=== PATIENT | female | born 1985 | race American Indian/Alaskan Native ===

== ENCOUNTER 2018-01-24 01:43 | Emergency (ER) | payer MEDICAID ==
--- NOTE | 2018-01-24 03:09 | Emergency Department Report ---
ED General Adult HPI - General Chief complaint: Upper Respiratory Infection Stated complaint: COUGHING BLOOD Time Seen by Provider: 01/24/18 01:50 Source: patient, EMS Mode of arrival: Stretcher Limitations: No Limitations - History of Present Illness MD Complaint: couging up blood and chest pain Onset/Timin (days) -: Gradual Location: chest Radiation: non-radiation Severity scale (0 -10): 5 Quality: crushing Consistency: constant Improves with: none Worsens with: none Associated Symptoms: chest pain, cough Treatments Prior to Arrival: none - Related Data Home Medications Medication Instructions Recorded Confirmed Last Taken Lispro Insulin [Humalog] 5 unit SQ TID 07/27/17 12/08/17 1 Day Ago ~11/16/17 Suvorexant [Belsomra] 20 mg PO QHS 12/08/17 12/08/17 Unknown Previous Rx's Medication Instructions Recorded Last Taken Type Albuterol Sulfate [Albuterol 0.63% 0.63 mg IH TID PRN #30 vial.neb 08/01/17 1 Day Ago Rx NEBS] ~11/16/17 Insulin Glargine,Hum.rec.anlog 10 units SQ QHS #30 vial 08/01/17 1 Day Ago Rx [Lantus] ~11/16/17 Lisinopril 20 mg PO DAILY #30 tablet 08/01/17 1 Day Ago Rx ~11/16/17 Lurasidone HCl [Latuda] 120 mg PO QDAY #30 tablet 08/01/17 1 Day Ago Rx ~11/16/17 Rivaroxaban [Xarelto] 20 mg PO QHS #30 tablet 08/01/17 1 Day Ago Rx ~11/16/17 Duloxetine HCl [Cymbalta] 30 mg PO DAILY 30 Days capsule. 08/15/17 1 Day Ago Rx ~11/16/17 ALPRAZolam [Xanax TAB] 1 mg PO BID #14 tablet 12/12/17 Unknown Rx Ipratropium (Nf) [Atrovent HFA 2 puff IH Q6HR PRN #30 inha 12/12/17 Unknown Rx 17MCG/PUFF] Metoprolol [Lopressor TAB] 12.5 mg PO BID #60 tablet 12/12/17 Unknown Rx Prednisone [predniSONE 5 mg (6-Day 5 mg PO .TAPER #1 tab.ds.pk 12/12/17 Unknown Rx Pack, 21 Tabs)] levETIRAcetam [Keppra] 500 mg PO BID #60 tablet 12/12/17 Unknown Rx oxyCODONE /ACETAMINOPHEN [Percocet 1 tab PO Q8H PRN #14 tablet 12/12/17 Unknown Rx 5/325 mg] Allergies Allergy/AdvReac Type Severity Reaction Status Date / Time aspirin Allergy Hives Verified 08/13/17 17:52 ketorolac [From Toradol] Allergy Hives Verified 08/13/17 17:52 tramadol Allergy Hives Verified 11/16/17 21:03 ED Review of Systems ROS: Stated complaint: COUGHING BLOOD Other details as noted in HPI Comment: All other systems reviewed and negative ED Past Medical Hx - Past Medical History Hx Hypertension: Yes Hx CVA: Yes (September 2016 affecting the left side) Hx Heart Attack/AMI: Yes (08/27/16) Hx Congestive Heart Failure: Yes Hx Diabetes: Yes Hx Pulmonary Embolism: Yes Hx Seizures: Yes Hx Kidney Stones: Yes Hx Asthma: Yes Hx COPD: Yes Hx HIV: No Additional medical history: 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, Pericarditis - Surgical History Additional Surgical History: Partial hysterectomy, Tubaligation, Trach placed, Umbilical hernia repair, Left chest port - Social History Smoking Status: Never Smoker Substance Use Type: None - Medications Home Medications: Home Medications Medication Instructions Recorded Confirmed Last Taken Type Lispro Insulin [Humalog] 5 unit SQ TID 07/27/17 12/08/17 1 Day Ago History ~11/16/17 Albuterol Sulfate [Albuterol 0.63% 0.63 mg IH TID PRN #30 vial.neb 08/01/17 1 Day Ago Rx NEBS] ~11/16/17 Insulin Glargine,Hum.rec.anlog 10 units SQ QHS #30 vial 08/01/17 12/08/17 1 Day Ago Rx [Lantus] ~11/16/17 Lisinopril 20 mg PO DAILY #30 tablet 08/01/17 12/08/17 1 Day Ago Rx ~11/16/17 Lurasidone HCl [Latuda] 120 mg PO QDAY #30 tablet 08/01/17 12/08/17 1 Day Ago Rx ~11/16/17 Rivaroxaban [Xarelto] 20 mg PO QHS #30 tablet 08/01/17 12/08/17 1 Day Ago Rx ~11/16/17 Duloxetine HCl [Cymbalta] 30 mg PO DAILY 30 Days capsule. 08/15/17 12/08/17 1 Day Ago Rx ~11/16/17 Suvorexant [Belsomra] 20 mg PO QHS 12/08/17 12/08/17 Unknown History ALPRAZolam [Xanax TAB] 1 mg PO BID #14 tablet 12/12/17 Unknown Rx Ipratropium (Nf) [Atrovent HFA 2 puff IH Q6HR PRN #30 inha 12/12/17 Unknown Rx 17MCG/PUFF] Metoprolol [Lopressor TAB] 12.5 mg PO BID #60 tablet 12/12/17 Unknown Rx Prednisone [predniSONE 5 mg (6-Day 5 mg PO .TAPER #1 tab.ds.pk 12/12/17 Unknown Rx Pack, 21 Tabs)] levETIRAcetam [Keppra] 500 mg PO BID #60 tablet 12/12/17 Unknown Rx oxyCODONE /ACETAMINOPHEN [Percocet 1 tab PO Q8H PRN #14 tablet 12/12/17 Unknown Rx 5/325 mg] ED Physical Exam - General Limitations: No Limitations General appearance: alert, in no apparent distress - Head Head exam: Present: atraumatic, normocephalic - Eye Eye exam: Present: normal appearance - ENT ENT exam: Present: mucous membranes moist, other (tracheostomy in place) - Neck Neck exam: Present: normal inspection - Respiratory Respiratory exam: Present: normal lung sounds bilaterally. Absent: respiratory distress - Cardiovascular Cardiovascular Exam: Present: regular rate, normal rhythm. Absent: systolic murmur, diastolic murmur, rubs, gallop - GI/Abdominal GI/Abdominal exam: Present: soft, normal bowel sounds. Absent: tenderness - Rectal Rectal exam: Present: deferred - Extremities Exam Extremities exam: Present: normal inspection - Back Exam Back exam: Present: normal inspection - Neurological Exam Neurological exam: Present: alert, oriented X3 - Psychiatric Psychiatric exam: Present: normal affect, normal mood - Skin Skin exam: Present: warm, dry, intact, normal color. Absent: rash ED Course Vital Signs 01/24/18 01/24/18 02:00 04:25 Temperature 99.2 F Pulse Rate 85 Respiratory 18 16 Rate Blood Pressure 112/68 Blood Pressure 112/68 [Right] O2 Sat by Pulse 100 Oximetry ED Medical Decision Making - Lab Data Result diagrams: 01/24/18 03:35 01/24/18 03:35 - Radiology Data Radiology results: report reviewed - Medical Decision Making i feel the patient hemoptysis is due to take fact the her trachea was try and i advised her to use her oxygen over humidifier Critical care attestation.: If time is entered above; I have spent that time in minutes in the direct care of this critically ill patient, excluding procedure time. ED Disposition Clinical Impression: Hemoptysis Disposition: DC-01 TO HOME OR SELFCARE Is pt being admited?: No Does the pt Need Aspirin: No Condition: Stable Instructions: Acute Hemoptysis (ED) Additional Instructions: follow up with your PCP in 2 days for your low hemoglobin as he might want to order more testing Time of Disposition: 05:04 Print Language: [place]
[2018-01-24] MEDS ORDERED: TYLENOL PO ONE (03:13)
[2018-01-24 03:46] LABS: Basophils % (Auto) 0.3 % (0.0-1.8); Eosinophils # (Auto) 0.1 K/mm3 (0.0-0.4); Eosinophils % (Auto) 1.4 % (0.0-4.3); Lymphocytes # (Auto) 2.6 K/mm3 (1.2-5.4); Lymphocytes % (Auto) 31.1 % (13.4-35.0); Mean Corpuscular HGB Conc 31 % (30-34); Monocytes # (Auto) 0.7 K/mm3 (0.0-0.8); Monocytes % (Auto) 8.4 % (0.0-7.3); Platelet Count 236 K/mm3 (140-440); Red Blood Count 3.75 M/mm3 (3.65-5.03); Red Cell Distribution Width 18.5 % (13.2-15.2)
--- NOTE | 2018-01-24 03:47 | Cat Scan Report ---
FINAL REPORT EXAM: CT CHEST WO CON HISTORY: hemoptysis TECHNIQUE: Routine axial imaging was obtained of the thorax without IV contrast with sagittal and coronal reconstructions. Comparison is made to the study of 11/16/2017. FINDINGS: At this time the lungs show no evidence infiltrates or congestion. Pleural fluid is not identified. There is a small bleb in the right middle lobe. The heart size is normal. Pericardial fluid is not seen. There is no evidence of adenopathy. There is a right-sided Port-A-Cath catheter with the tip in the superior vena cava. The thoracic aorta is normal in caliber. The skeletal structures do not show any acute changes. IMPRESSION: No acute process in the chest.
[2018-01-24] MEDS ORDERED: NORCO 5/325 PO ONE (03:53)
[2018-01-24 03:59] LABS: Mean Corpuscular Hemoglobin 21 pg (28-32); Mean Corpuscular Volume 69 fl (79-97)
[2018-01-24 04:14] LABS: Alanine Aminotransferase 6 units/L (7-56); Albumin 3.6 g/dL (3.9-5); BUN/Creatinine Ratio 13; Blood Urea Nitrogen 8 mg/dL (7-17); Calcium 8.3 mg/dL (8.4-10.2); Hemolysis Index 1
[2018-01-24 05:48] VITALS: BP 101/53
== END 2018-01-24 06:23 | disposition home or self-care (01) ==
LOC: ED 01:43
DX: R04.2 Hemoptysis (principal); I11.0 Hypertensive heart disease with heart failure; I50.9 Heart failure, unspecified; E11.9 Type 2 diabetes mellitus without complications; J44.9 Chronic obstructive pulmonary disease, unspecified; I25.2 Old myocardial infarction; Z79.4 Long term (current) use of insulin; Z88.6 Allergy status to analgesic agent
CPT/HCPCS: 36415; 71250; 80053; 84484; 85025; 99284

== ENCOUNTER 2018-03-02 13:56 | Emergency (ER) | payer MEDICAID ==
--- NOTE | 2018-03-02 15:32 | XRay Report ---
Portable chest: Chest pain. There is a right-sided port entering the jugular vein with the tip in the mid SVC. The lungs are clear the mediastinal contour is unremarkable. The bones are normal. No interval change compared to prior exam of February 17, 2018. Impression: No acute finding and no pathology identified.
[2018-03-02] MEDS ORDERED: TYLENOL PO ONE (23:02)
[2018-03-02 23:06] LABS: Basophils % (Auto) 0.3 % (0.0-1.8); Eosinophils # (Auto) 0.1 K/mm3 (0.0-0.4); Eosinophils % (Auto) 1.2 % (0.0-4.3); Hematocrit 34.2 % (30.3-42.9); Hemoglobin 11.1 gm/dl (10.1-14.3); Lymphocytes # (Auto) 2.8 K/mm3 (1.2-5.4); Mean Corpuscular HGB Conc 33 % (30-34); Mean Corpuscular Volume 73 fl (79-97); Monocytes # (Auto) 0.4 K/mm3 (0.0-0.8); Monocytes % (Auto) 5.5 % (0.0-7.3); Platelet Count 193 K/mm3 (140-440); Red Blood Count 4.67 M/mm3 (3.65-5.03)
[2018-03-02 23:07] LABS: Mean Corpuscular Hemoglobin 24 pg (28-32); Red Cell Distribution Width 24.9 % (13.2-15.2)
[2018-03-02 23:15] LABS: INR 0.95 (0.87-1.13)
[2018-03-02 23:16] LABS: Partial Thromboplastin Time 33.5 Sec. (24.2-36.6)
[2018-03-02 23:18] LABS: BUN/Creatinine Ratio 15; Blood Urea Nitrogen 9 mg/dL (7-17); Calcium 9.2 mg/dL (8.4-10.2); Hemolysis Index 4
[2018-03-02] MEDS ORDERED: SUBLIMAZE ONE (23:29)
[2018-03-02] MEDS ORDERED: SUBLIMAZE IV ONE (23:30)
--- NOTE | 2018-03-03 00:51 | Emergency Department Report ---
HPI - General Chief Complaint: Chest Pain Time Seen by Provider: 03/02/18 21:35 - HPI HPI: The patient is 33-year-old female with a history of congestive heart failure and CAD, well known to this emergency department, and whom presents for evaluation recurrence of chest pain. The patient reports chest pain for the past day, constant, 10/10 in severity, sharp in quality, exacerbated with movement. She also complains of bilateral lower leg swelling. The patient denies trauma to the chest, dyspnea, cough, syncope, hemoptysis, unilateral leg swelling, oral contraceptive use, recent immobilization, hx of recent cancer. 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 O2 dependent. - Surgical History Past Surgical History?: Yes Additional Surgical History: Partial hysterectomy, Tubaligation, Trach placed, Umbilical hernia repair, Left chest port - Social History Smoking Status: Never Smoker Substance Use Type: None - Medications Home Medications: Home Medications Medication Instructions Recorded Confirmed Last Taken Type Lispro Insulin [Humalog] 5 unit SQ TID 07/27/17 02/18/18 1 Day Ago History ~11/16/17 Albuterol Sulfate [Albuterol 0.63% 0.63 mg IH TID PRN #30 vial.neb 08/01/1706/30 1 Day Ago Rx NEBS] ~11/16/17 Insulin Glargine,Hum.rec.anlog 10 units SQ QHS #30 vial 08/01/17 02/18/18 1 Day Ago Rx [Lantus] ~11/16/17 Lisinopril 20 mg PO DAILY #30 tablet 08/01/17 02/18/18 1 Day Ago Rx ~11/16/17 Lurasidone HCl [Latuda] 120 mg PO QDAY #30 tablet 08/01/17 02/18/18 1 Day Ago Rx ~11/16/17 Rivaroxaban [Xarelto] 20 mg PO QHS #30 tablet 08/01/17 02/18/18 1 Day Ago Rx ~11/16/17 Duloxetine HCl [Cymbalta] 30 mg PO DAILY 30 Days capsule. 08/15/17 02/18/18 1 Day Ago Rx ~11/16/17 Suvorexant [Belsomra] 20 mg PO QHS 12/08/17 02/18/18 Unknown History ALPRAZolam [Xanax TAB] 1 mg PO BID #14 tablet 12/12/17 02/18/18 Unknown Rx Ipratropium (Nf) [Atrovent HFA 2 puff IH Q6HR PRN #30 inha 12/12/17 02/18/18 Unknown Rx 17MCG/PUFF] Metoprolol [Lopressor TAB] 12.5 mg PO BID #60 tablet 12/12/17 02/18/18 Unknown Rx Prednisone [predniSONE 5 mg (6-Day 5 mg PO .TAPER #1 tab.ds.pk 12/12/17 Unknown Rx Pack, 21 Tabs)] levETIRAcetam [Keppra] 500 mg PO BID #60 tablet 12/12/17 02/18/18 Unknown Rx oxyCODONE /ACETAMINOPHEN [Percocet 1 tab PO Q8H PRN #12 tablet 02/20/18 Unknown Rx 5/325 mg] ED Review of Systems ROS: Stated complaint: CHEST PAIN Other details as noted in HPI Constitutional: denies: fever ENT: denies: throat or neck pain Respiratory: denies: cough, shortness of breath Cardiovascular: reports: chest pain Endocrine: denies unexplained weight loss or gain Gastrointestinal: denies: abdominal pain, nausea Genitourinary: denies: dysuria Musculoskeletal: denies: leg swelling Skin: denies: rash Neurological: denies: headache Hematological/Lymphatic: denies: easy bleeding or easy bruising Psych: denies sadness or hopelessness Physical Exam - Physical Exam Vital Signs: Vital Signs 03/02/18 03/02/18 03/02/18 14:18 14:25 14:29 Temperature 98.8 F Pulse Rate 78 107 H 79 Respiratory 18 Rate Blood Pressure 102/78 110/76 Blood Pressure [Left] O2 Sat by Pulse 100 96 100 Oximetry 03/02/18 03/02/1818 21:25 21:29 21:31 Temperature 98.7 F Pulse Rate 67 66 Respiratory 16 16 Rate Blood Pressure 117/69 99/63 Blood Pressure 117/69 [Left] O2 Sat by Pulse 99 Oximetry 03/02/18 03/02/18 03/02/18 21:45 22:00 22:21 Temperature Pulse Rate 72 74 Respiratory 17 11 L Rate Blood Pressure 99/63 117/78 117/78 Blood Pressure [Left] O2 Sat by Pulse Oximetry 03/02/18 03/02/18 03/02/18 22:25 22:30 22:45 Temperature Pulse Rate 73 87 Respiratory 16 13 43 H Rate Blood Pressure 109/69 109/69 Blood Pressure [Left] O2 Sat by Pulse 98 Oximetry 03/02/18 03/02/18 03/02/18 23:01 23:15 23:23 Temperature Pulse Rate 64 73 Respiratory 15 12 16 Rate Blood Pressure 109/69 109/69 Blood Pressure [Left] O2 Sat by Pulse Oximetry 03/02/18 03/02/18 03/02/18 23:31 23:35 23:45 Temperature Pulse Rate 72 68 Respiratory 13 16 18 Rate Blood Pressure 119/68 119/68 Blood Pressure [Left] O2 Sat by Pulse 100 Oximetry 03/03/18 00:04 Temperature Pulse Rate 77 Respiratory Rate Blood Pressure Blood Pressure [Left] O2 Sat by Pulse Oximetry Physical Exam: General: well-nourished, well-developed, no acute distress, patient morbidly obese Head: Normocephalic, atraumatic Eyes: normal sclera ENT: Mucous membranes are pink and moist Neck: trachea midline, neck supple, No neck stiffness, no cervical adenopathy Respiratory: Breath sounds equal bilaterally, no wheezing, rales, or rhonchi Cardio: S1 and S2 present, no murmurs, rubs, gallops, capillary refill is brisk Abdomen: Normoactive bowel sounds, soft abdomen, no rigidity, no guarding or rebound tenderness Chest WALL/Back: No tenderness to palpation of the chest wall, no CVA tenderness with percussion Musc: No pitting edema Skin: No rash Neuro: no facial drooping, normal speech Psych: Normal affect ED Course Vital Signs 03/02/18 03/02/18 03/02/18 14:18 14:25 14:29 Temperature 98.8 F Pulse Rate 78 107 H 79 Respiratory 18 Rate Blood Pressure 102/78 110/76 Blood Pressure [Left] O2 Sat by Pulse 100 96 100 Oximetry 03/02/18 03/02/18 03/02/18 21:25 21:29 21:31 Temperature 98.7 F Pulse Rate 67 66 Respiratory 16 16 Rate Blood Pressure 117/69 99/63 Blood Pressure 117/69 [Left] O2 Sat by Pulse 99 Oximetry 03/02/18 03/02/18 03/02/18 21:45 22:00 22:21 Temperature Pulse Rate 72 74 Respiratory 17 11 L Rate Blood Pressure 99/63 117/78 117/78 Blood Pressure [Left] O2 Sat by Pulse Oximetry 03/02/18 03/02/18 03/02/18 22:25 22:30 22:45 Temperature Pulse Rate 73 87 Respiratory 16 13 43 H Rate Blood Pressure 109/69 109/69 Blood Pressure [Left] O2 Sat by Pulse 98 Oximetry 03/02/18 03/02/18 03/02/18 23:01 23:15 23:23 Temperature Pulse Rate 64 73 Respiratory 15 12 16 Rate Blood Pressure 109/69 109/69 Blood Pressure [Left] O2 Sat by Pulse Oximetry 03/02/18 03/02/18 03/02/18 23:31 23:35 23:45 Temperature Pulse Rate 72 68 Respiratory 13 16 18 Rate Blood Pressure 119/68 119/68 Blood Pressure [Left] O2 Sat by Pulse 100 Oximetry 03/03/18 00:04 Temperature Pulse Rate 77 Respiratory Rate Blood Pressure Blood Pressure [Left] O2 Sat by Pulse Oximetry ED Medical Decision Making - Lab Data Result diagrams: 03/02/18 22:36 03/02/18 22:36 - Medical Decision Making The patient was seen and examined by myself. The patient is placed on a residential monitor and continuous pulse ox. On initial evaluation, the patient was found to be in no distress. EKG was negative for findings suggestive of acute cardiac infarct. Labs and imaging are obtained. The patient is given IV dose of fentanyl for pain. Chest x-ray is negative for pneumothorax, focal consolidation, pulmonary vascular congestion, pleural effusion, or other obvious acute cardiopulmonary disease process. Lab results were non-concerning including levels of troponin, WBC, hemoglobin, hematocrit, electrolytes, renal function. Medical records are reviewed and revealed that the patient received a cardiac stress test which was -30 days ago. Additionally MRIs of the C-spine, T-spine, L -spine were obtained and were all negative for spinal cord injury or cauda equina as well. The patient was informed of essentially unremarkable workup today. The patient reported that her pain persisted despite IV fentanyl. She was offered a tablet of Flexeril and she refuses. She requested narcotic pain medication. She was informed that as her workup is unremarkable, narcotic pain medicine is not warranted. She then began to report additional complaints including constant back pain and leg pain for more than one month. She was informed of unremarkable MRIs of the spine and right lower extremity 2 weeks ago. The patient is exhibiting narcotic seeking behavior. The patient is stable for discharge with outpatient follow-up. The patient is given follow-up and return instructions. The patient expressed understanding and agreed with the plan. The patient is discharged in stable condition. Critical care attestation.: If time is entered above; I have spent that time in minutes in the direct care of this critically ill patient, excluding procedure time. ED Disposition Clinical Impression: Acute chest pain Disposition: - TO HOME OR SELFCARE Is pt being admited?: No Does the pt Need Aspirin: No Condition: Stable Instructions: Chest Pain (ED) Referrals: PRIMARY CARE, [Primary Care Provider] - 3-5 Days Time of Disposition: 00:51
[2018-03-03] MEDS ORDERED: FLUSH HEPARIN IV ONE (01:33)
[2018-03-03 02:25] VITALS: BP 111/70
== END 2018-03-03 03:58 | disposition home or self-care (01) ==
LOC: ED 13:56
DX: R07.9 Chest pain, unspecified (principal); I25.2 Old myocardial infarction; I11.0 Hypertensive heart disease with heart failure; I50.9 Heart failure, unspecified; E11.9 Type 2 diabetes mellitus without complications; J44.9 Chronic obstructive pulmonary disease, unspecified; F32.9 Major depressive disorder, single episode, unspecified; Z86.711 Personal history of pulmonary embolism; Z98.51 Tubal ligation status; Z86.73 Personal history of transient ischemic attack (TIA), and cerebral infarction without residual deficits; Z87.442 Personal history of urinary calculi; Z88.6 Allergy status to analgesic agent
CPT/HCPCS: 36415; 71045; 80048; 82962; 84484; 84703; 85025; 85610; 85730; 93005; 93010; 96374; 96375; 99284; J1642; J3010

== ENCOUNTER 2018-06-02 22:33 | Emergency (ER) | payer MEDICAID ==
[2018-06-02] MEDS ORDERED: TORADOL IV ONE (22:52)
[2018-06-02] MEDS ORDERED: PEPCID IV ONE (22:52)
[2018-06-02] MEDS ORDERED: NACL 0.9% 1000 ML 1,000 ML IV ONE (22:52)
[2018-06-02] MEDS ORDERED: ZOFRAN IV ONE (22:52)
[2018-06-02] MEDS ORDERED: MORPHINE IV ONE (22:52)
[2018-06-02 23:29] LABS: Basophils % (Auto) 0.3 % (0.0-1.8); Eosinophils # (Auto) 0.1 K/mm3 (0.0-0.4); Eosinophils % (Auto) 1.5 % (0.0-4.3); Hematocrit 33.2 % (30.3-42.9); Hemoglobin 11.2 gm/dl (10.1-14.3); Lymphocytes # (Auto) 2.4 K/mm3 (1.2-5.4); Lymphocytes % (Auto) 33.5 % (13.4-35.0); Mean Corpuscular HGB Conc 34 % (30-34); Mean Corpuscular Hemoglobin 28 pg (28-32); Mean Corpuscular Volume 84 fl (79-97); Monocytes # (Auto) 0.5 K/mm3 (0.0-0.8); Monocytes % (Auto) 6.7 % (0.0-7.3); Platelet Count 195 K/mm3 (140-440); Red Blood Count 3.94 M/mm3 (3.65-5.03); Red Cell Distribution Width 16.8 % (13.2-15.2)
[2018-06-02] MEDS ORDERED: NACL 0.9% 50 ML ONE (23:31)
[2018-06-03 00:01] LABS: Alanine Aminotransferase 5 units/L (7-56); Albumin 3.9 g/dL (3.9-5); BUN/Creatinine Ratio 15; Blood Urea Nitrogen 12 mg/dL (7-17); Hemolysis Index 13
[2018-06-03] MEDS ORDERED: BENADRYL IV ONE (00:14)
--- NOTE | 2018-06-03 00:14 | XRay Report ---
FINAL REPORT EXAM: XR ANKLE 3+V LT HISTORY: fall injury COMPARISON: None available. FINDINGS: Three views of the left ankle obtained. Bony structures are intact. Joint spaces are preserved. No acute fracture dislocation. IMPRESSION: No acute bony abnormality.
--- NOTE | 2018-06-03 00:46 | Cat Scan Report ---
FINAL REPORT EXAM: CT HEAD/BRAIN WO CON HISTORY: fall injury COMPARISON: CT of the head from February 2018. TECHNIQUE: Axial images obtained skull base through vertex. FINDINGS: No acute intracranial hemorrhage, midline shift or pathologic extra axial fluid collection. Ventricles and cisterns are normal in size and configuration for the patient's age. Almanza-white differentiation preserved. Calvarium grossly intact. Visualized ocular globes are grossly unremarkable. Visualized para-nasal sinuses and mastoid air cells are clear. IMPRESSION: No grossly acute intracranial abnormality.
--- NOTE | 2018-06-03 01:01 | Cat Scan Report ---
FINAL REPORT EXAM: CT CERVICAL SPINE WO CON HISTORY: fall injury COMPARISON: February 2018. TECHNIQUE: Axial images obtained through the cervical spine. Additional sagittal and coronal reformatted images were obtained. FINDINGS: Straightening of the normal lordotic curvature of the cervical spine. Cervical vertebral body heights are preserved. No acute fracture or traumatic subluxation. Odontoid process, articular pillars and occipital condyles are intact. Mild foraminal narrowing C5-C6 level due to uncovertebral hypertrophy. No significant bony encroachment on the canal or foramen otherwise throughout the cervical spine. Partial visualization of right IJ catheter. IMPRESSION: No acute fracture or subluxation of the cervical spine. There is straightening of the normal lordotic curvature which may relate to patient positioning or muscle spasm. Very mild degenerative changes.
--- NOTE | 2018-06-03 01:11 | Cat Scan Report ---
FINAL REPORT EXAM: CT CHEST WO CON HISTORY: fall injury rib pain COMPARISON: Chest x-ray from February 2018. Chest CT from January 2018. TECHNIQUE: Contiguous axial images were obtained. Additional sagittal and coronal reformatted images were obtained. FINDINGS: Heart borderline enlarged. Thoracic aorta normal in caliber. Ascending thoracic aorta measures 2.4 centimeters in diameter. Probable small thymic remnant is present. Right-sided Port-A-Cath is in place. Distal tip extends to the right atrium. No pathologically enlarged intrathoracic or axillary lymph nodes. Tracheobronchial tree is patent. No pneumothorax or pneumomediastinum. Mild linear and subsegmental atelectasis at the lung bases. No large consolidation or pleural effusion otherwise. Visualized upper abdomen is grossly unremarkable. Sagittal coronal reformats cannot be windowed for evaluation of bony structures. Only axial images could be windowed for evaluation of bony structures. Visualized bilateral ribs are grossly intact. No displaced rib fractures. Not all of the lower ribs are included on the study. IMPRESSION: No gross acute intrathoracic injury. Mild atelectasis at the dependent portions of the lower lungs. Bilateral ribs are grossly intact.
--- NOTE | 2018-06-03 01:35 | Cat Scan Report ---
FINAL REPORT EXAM: CT ABDOMEN PELVIS W CON HISTORY: [place] abd pain week COMPARISON: CT abdomen pelvis August 2017. Additional sagittal and coronal reformatted images were obtained. Administration of IV contrast given per institution protocol. Images submitted for interpretation. 100 cc Omnipaque [id number]. TECHNIQUE: Contiguous axial images were obtained. Additional sagittal and coronal reformatted images were obtained. Administration of IV contrast given per institution protocol. Images submitted for interpretation. FINDINGS: Mild linear and subsegmental atelectasis at the dependent portions of the visualized lower lungs. Visualized lower ribs are intact. No calcified gallstones or biliary dilatation. Homogeneous enhancement of the liver, spleen, pancreas and adrenal glands. No solid renal lesion. No hydronephrosis. 3 millimeter nonobstructive right renal calculus. Aorta and IVC are normal in caliber. Urinary bladder is unremarkable. Uterus is surgically absent. Right ovary is not visualized may be surgically absent. Left ovary appears to remain. Dominant follicle left ovary measuring 1.5 centimeters. No free fluid or lymphadenopathy in the pelvic cavity. Multiple pelvic phleboliths. The appendix is normal in caliber. Moderate stool in the colon. Large and small bowel loops normal in caliber. Lumbar vertebral body heights are preserved. Bony pelvis is grossly intact. Stable linear radiopaque structure the posterior margin of the proximal gastric body. This may relate to sequelae of prior surgery or intervention. IMPRESSION: No focal inflammatory changes of the abdomen and pelvis. No acute abdominal or pelvic organ injury. 3 millimeter nonobstructive right renal calculus. No hydronephrosis bilaterally. Stable linear metallic structure the posterior margin the stomach which may relate to sequelae of prior intervention. Clinical correlation is needed. Ingested foreign bodies not excluded. This is unchanged from prior study. 1.5 centimeter dominant follicle left ovary. Prior hysterectomy.
--- NOTE | 2018-06-03 01:51 | Emergency Department Report ---
ED Fall HPI - General Chief Complaint: Fall Stated Complaint: FALL/RT SIDE WEAK/CHEST PAIN Time Seen by Provider: 06/02/18 22:40 Source: EMS Mode of arrival: Ambulatory - History of Present Illness Initial Comments: Patient is a 33-year-old female with past medical history of stroke with some mild residual right sided weakness who states approximately one week ago she started having some nausea vomiting. Patient states she is now unable to keep anything down has become weak. Patient's states she got out of the bathtub and she had a slip and fall secondary to weakness. Patient has brief loss of consciousness. Patient states she has pain essentially from the head to the toes. Patient states she has pain in her head neck lower back bilateral ribs lower abdomen and left ankle. Patient is able to lift both arms equally however when she was discussing the week she would not lift her right arm. - Related Data Home Medications Medication Instructions Recorded Confirmed Last Taken Lispro Insulin [Humalog] 5 unit SQ TID 07/27/17 02/18/18 1 Day Ago ~11/16/17 Suvorexant [Belsomra] 20 mg PO QHS 12/08/17 02/18/18 Unknown Previous Rx's Medication Instructions Recorded Last Taken Type Albuterol Sulfate [Albuterol 0.63% 0.63 mg IH TID PRN #30 vial.neb 08/01/17 1 Day Ago Rx NEBS] ~11/16/17 Insulin Glargine,Hum.rec.anlog 10 units SQ QHS #30 vial 08/01/17 1 Day Ago Rx [Lantus] ~11/16/17 Lisinopril 20 mg PO DAILY #30 tablet 08/01/17 1 Day Ago Rx ~11/16/17 Lurasidone HCl [Latuda] 120 mg PO QDAY #30 tablet 08/01/17 1 Day Ago Rx ~11/16/17 Rivaroxaban [Xarelto] 20 mg PO QHS #30 tablet 08/01/17 1 Day Ago Rx ~11/16/17 Duloxetine HCl [Cymbalta] 30 mg PO DAILY 30 Days capsule. 08/15/17 1 Day Ago Rx ~11/16/17 ALPRAZolam [Xanax TAB] 1 mg PO BID #14 tablet 12/12/17 Unknown Rx Ipratropium (Nf) [Atrovent HFA 2 puff IH Q6HR PRN #30 inha 12/12/17 Unknown Rx 17MCG/PUFF] Metoprolol [Lopressor TAB] 12.5 mg PO BID #60 tablet 12/12/17 Unknown Rx Prednisone [predniSONE 5 mg (6-Day 5 mg PO .TAPER #1 tab.ds.pk 12/12/17 Unknown Rx Pack, 21 Tabs)] levETIRAcetam [Keppra] 500 mg PO BID #60 tablet 12/12/17 Unknown Rx oxyCODONE /ACETAMINOPHEN [Percocet 1 tab PO Q8H PRN #12 tablet 02/20/18 Unknown Rx 5/325 mg] HYDROcodone/APAP 5-325 [[place] 1 each PO Q4HR PRN #12 tablet 06/03/18 Unknown Rx 5/325] Ondansetron [Zofran Odt] 4 mg PO Q8HR PRN #10 tab.rapdis 06/03/18 Unknown Rx methOCARBAMOL [Robaxin TAB] 500 mg PO Q6H PRN #15 tablet 06/03/18 Unknown Rx Allergies Allergy/AdvReac Type Severity Reaction Status Date / Time aspirin Allergy Hives Verified 08/13/17 17:52 ketorolac [From Toradol] Allergy Hives Verified 08/13/17 17:52 tramadol Allergy Hives Verified 11/16/17 21:03 ED Review of Systems ROS: Stated complaint: FALL/RT SIDE WEAK/CHEST PAIN Other details as noted in HPI Comment: All other systems reviewed and negative ED Past Medical Hx - Past Medical History Previous Medical History?: Yes Hx Hypertension: Yes Hx CVA: Yes (September 2016 affecting the left side) Hx Heart Attack/AMI: Yes (08/27/16) Hx Congestive Heart Failure: Yes Hx Diabetes: Yes Hx Deep Vein Thrombosis: No Hx Pulmonary Embolism: Yes Hx Liver Disease: No Hx Renal Disease: No Hx of Cancer: No Hx Sickle Cell Disease: No Hx Arthritis: No Hx Headaches / Migraines: No Hx Seizures: Yes Hx Kidney Stones: Yes Hx Psychiatric Treatment: Yes (depression) Hx Asthma: Yes Hx COPD: Yes Hx Tuberculosis: No Hx Dementia: No Hx HIV: No Additional medical history: 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 O2 dependent. - Surgical History Past Surgical History?: Yes Hx Coronary Stent: No Hx Open Heart Surgery: No Hx Pacemaker: No Hx Internal Defibrillator: No Hx Cholecystectomy: No Hx Appendectomy: No Hx Breast Surgery: No Additional Surgical History: Partial hysterectomy, Tubaligation, Trach placed, Umbilical hernia repair, Left chest port - Social History Smoking Status: Never Smoker Substance Use Type: None - Medications Home Medications: Home Medications Medication Instructions Recorded Confirmed Last Taken Type Lispro Insulin [Humalog] 5 unit SQ TID 07/27/17 02/18/18 1 Day Ago History ~11/16/17 Albuterol Sulfate [Albuterol 0.63% 0.63 mg IH TID PRN #30 vial.neb 08/01/1706/30 1 Day Ago Rx NEBS] ~11/16/17 Insulin Glargine,Hum.rec.anlog 10 units SQ QHS #30 vial 08/01/17 02/18/18 1 Day Ago Rx [Lantus] ~11/16/17 Lisinopril 20 mg PO DAILY #30 tablet 08/01/17 02/18/18 1 Day Ago Rx ~11/16/17 Lurasidone HCl [Latuda] 120 mg PO QDAY #30 tablet 08/01/17 02/18/18 1 Day Ago Rx ~11/16/17 Rivaroxaban [Xarelto] 20 mg PO QHS #30 tablet 08/01/17 02/18/18 1 Day Ago Rx ~11/16/17 Duloxetine HCl [Cymbalta] 30 mg PO DAILY 30 Days capsule. 08/15/17 02/18/18 1 Day Ago Rx ~11/16/17 Suvorexant [Belsomra] 20 mg PO QHS 12/08/17 02/18/18 Unknown History ALPRAZolam [Xanax TAB] 1 mg PO BID #14 tablet 12/12/17 02/18/18 Unknown Rx Ipratropium (Nf) [Atrovent HFA 2 puff IH Q6HR PRN #30 inha 12/12/17 02/18/18 Unknown Rx 17MCG/PUFF] Metoprolol [Lopressor TAB] 12.5 mg PO BID #60 tablet 12/12/17 02/18/18 Unknown Rx Prednisone [predniSONE 5 mg (6-Day 5 mg PO .TAPER #1 tab.ds.pk 12/12/17 Unknown Rx Pack, 21 Tabs)] levETIRAcetam [Keppra] 500 mg PO BID #60 tablet 12/12/17 02/18/18 Unknown Rx oxyCODONE /ACETAMINOPHEN [Percocet 1 tab PO Q8H PRN #12 tablet 02/20/18 Unknown Rx 5/325 mg] HYDROcodone/APAP 5-325 [[place] 1 each PO Q4HR PRN #12 tablet 06/03/18 Unknown Rx 5/325] Ondansetron [Zofran Odt] 4 mg PO Q8HR PRN #10 tab.rapdis 06/03/18 Unknown Rx methOCARBAMOL [Robaxin TAB] 500 mg PO Q6H PRN #15 tablet 06/03/18 Unknown Rx ED Physical Exam - General Limitations: No Limitations General appearance: alert, in no apparent distress - Head Head exam: Present: atraumatic, normocephalic - Eye Eye exam: Present: normal appearance - ENT ENT exam: Present: mucous membranes moist - Neck Neck exam: Present: normal inspection, tenderness (generalized), full ROM - Respiratory Respiratory exam: Present: normal lung sounds bilaterally. Absent: respiratory distress, wheezes, rales, rhonchi - Cardiovascular Cardiovascular Exam: Present: regular rate, normal rhythm. Absent: systolic murmur, diastolic murmur, rubs, gallop - GI/Abdominal GI/Abdominal exam: Present: soft, tenderness (generalized), normal bowel sounds. Absent: distended, guarding - Extremities Exam Extremities exam: Present: normal inspection, tenderness (left ankle without swelling) - Back Exam Back exam: Present: normal inspection, tenderness (generalized) - Neurological Exam Neurological exam: Present: alert, oriented X3 - Psychiatric Psychiatric exam: Present: normal affect, normal mood - Skin Skin exam: Present: warm, dry, intact, normal color. Absent: rash ED Course Vital Signs 06/02/18 06/02/18 06/02/18 22:44 22:46 22:52 Temperature 98.7 F Pulse Rate 83 88 89 Respiratory 12 11 L 18 Rate Blood Pressure 111/67 111/67 Blood Pressure 111/67 [Right] O2 Sat by Pulse 99 97 99 Oximetry 06/02/18 06/02/18 06/02/18 23:00 23:16 23:30 Temperature Pulse Rate 82 71 Respiratory 12 22 14 Rate Blood Pressure 111/67 111/67 111/67 Blood Pressure [Right] O2 Sat by Pulse 99 99 99 Oximetry 06/02/18 06/03/18 06/03/18 23:46 00:00 01:15 Temperature Pulse Rate 73 73 Respiratory 15 11 L 16 Rate Blood Pressure 111/67 111/67 Blood Pressure [Right] O2 Sat by Pulse 99 100 98 Oximetry ED Medical Decision Making - Lab Data Result diagrams: 06/02/18 Unknown 06/02/18 Unknown Lab Results 06/02/18 06/02/18 06/02/18 Range/Units Unknown Unknown Unknown WBC 7.3 (4.5-11.0) K/mm3 RBC 3.94 (3.65-5.03) M/mm3 Hgb 11.2 (10.1-14.3) gm/dl Hct 33.2 (30.3-42.9) % MCV 84 (79-97) fl MCH 28 (28-32) pg MCHC 34 (30-34) % RDW 16.8 H (13.2-15.2) % Plt Count 195 (140-440) K/mm3 Lymph % (Auto) 33.5 (13.4-35.0) % [place] % (Auto) 6.7 (0.0-7.3) % Eos % (Auto) 1.5 (0.0-4.3) % Baso % (Auto) 0.3 (0.0-1.8) % Lymph # 2.4 (1.2-5.4) K/mm3 [place] # 0.5 (0.0-0.8) K/mm3 Eos # 0.1 (0.0-0.4) K/mm3 Baso # 0.0 (0.0-0.1) K/mm3 Seg Neutrophils % 58.0 (40.0-70.0) % Seg Neutrophils # 4.2 (1.8-7.7) K/mm3 Sodium 141 (137-145) mmol/L Potassium 3.6 (3.6-5.0) mmol/L Chloride 103.4 (98-107) mmol/L Carbon Dioxide 23 (22-30) mmol/L Anion Gap 18 mmol/L BUN 12 (7-17) mg/dL Creatinine 0.8 (0.7-1.2) mg/dL Estimated GFR > 60 ml/min BUN/Creatinine Ratio 15 % Glucose 104 H (65-100) mg/dL Calcium 9.0 (8.4-10.2) mg/dL Total Bilirubin 0.30 (0.1-1.2) mg/dL AST 11 (5-40) units/L ALT 5 L (7-56) units/L Alkaline Phosphatase 96 (35-129) units/L Total Protein 6.7 (6.3-8.2) g/dL Albumin 3.9 (3.9-5) g/dL Albumin/Globulin Ratio 1.4 % HCG, Qual Negative (Negative) - Radiology Data CT of the head chest C-spine abdomen pelvis all within normal limits. X-ray of the left ankle is also within normal limits - Medical Decision Making Patient will be given pain medicine be discharged home. Critical care attestation.: If time is entered above; I have spent that time in minutes in the direct care of this critically ill patient, excluding procedure time. ED Disposition Clinical Impression: Musculoskeletal pain, History of CVA (cerebrovascular accident) Fall Qualifiers: Encounter type: initial encounter Qualified Code(s): W19.XXXA - Unspecified fall, initial encounter Gastritis Qualifiers: Gastritis type: unspecified gastritis Chronicity: acute Gastritis bleeding: presence of bleeding unspecified Qualified Code(s): K29.00 - Acute gastritis without bleeding Disposition: TO HOME OR SELFCARE Is pt being admited?: No Does the pt Need Aspirin: No Condition: Stable Instructions: Musculoskeletal Pain (ED), RICE Therapy (ED), Acute Nausea and Vomiting (ED) Referrals: PRIMARY MD HYUN [Primary Care Provider] - 3-5 Days ARBEN RICHARDS MD [Staff Physician] - 3-5 Days Time of Disposition: 01:53
[2018-06-03] MEDS ORDERED: NORCO 5/325 ONE (02:34)
[2018-06-03 03:16] VITALS: BP 110/63
[2018-06-03] MEDS ORDERED: NORCO 5/325 PO ONE (04:35)
== END 2018-06-03 03:15 | disposition home or self-care (01) ==
LOC: ED 22:33
DX: M79.1 Myalgia (principal); K29.00 Acute gastritis without bleeding; R51 Headache; R11.2 Nausea with vomiting, unspecified; I25.2 Old myocardial infarction; I11.0 Hypertensive heart disease with heart failure; I50.9 Heart failure, unspecified; E11.9 Type 2 diabetes mellitus without complications; J96.90 Respiratory failure, unspecified, unspecified whether with hypoxia or hypercapnia; F32.9 Major depressive disorder, single episode, unspecified; Z86.711 Personal history of pulmonary embolism; Z90.711 Acquired absence of uterus with remaining cervical stump; Z98.51 Tubal ligation status; Z79.4 Long term (current) use of insulin; Z86.73 Personal history of transient ischemic attack (TIA), and cerebral infarction without residual deficits; Z79.899 Other long term (current) drug therapy; W18.2XXA Fall in (into) shower or empty bathtub, initial encounter; Y93.89 Activity, other specified; Y99.8 Other external cause status; Y92.091 Bathroom in other non-institutional residence as the place of occurrence of the external cause
CPT/HCPCS: 29515; 36415; 70450; 71250; 72125; 73610; 74177; 80053; 84703; 85025; 96361; 96374; 96375; 99285; J1200; J1885; J2270; J2405; J7030; Q9967